=== PATIENT | female | born 1940 | race Caucasian/White ===

== ENCOUNTER 2016-08-13 23:58 | Emergency (ER) | payer MEDICARE, OTHER ==
[~2016-08-13 23:58] MED LIST: ALEVE220 MG PO; ASAB PO; CALTRAT600 PO; CARD60 PO; CENTRUM PO; CENTRUM TAB1 TAB PO; EMETROL LIQ.1 ML PO; HYDROCHLOROT25 MG PO; JANTOVEN5 MG; MAGNESIUM PO; MAGOX4 PO; OCUVITE PO; OS500+D PO; PRIN20 PO; PRIN5 PO; VISINE0.05 % OPH; VITAMIN C PO; VITAMIN C100 MG PO; VITAMIN D1000 UNI1 PO
== END 2016-08-14 01:59 | disposition home or self-care (01) ==
LOC: ER 23:58
DX: M25.551 Pain in right hip (principal); I10 Essential (primary) hypertension; C07 Malignant neoplasm of parotid gland; Z79.82 Long term (current) use of aspirin; Z79.01 Long term (current) use of anticoagulants
CPT/HCPCS: 72100; 72170; 73502-RT; 96372; 99283